=== PATIENT | female | born 1960 | race Two or more races ===

== ENCOUNTER 2023-06-28 14:17 | Emergency (ER) | payer MEDICARE, MEDICAID, SELFPAY ==
[2023-06-28 14:26] VITALS: BP 136/84; PULSE 65; TEMP 36.9; O2SAT 96; BMI 29.3
[2023-06-28 14:36] LABS: Glucometer 258 mg/dL (74-106)
--- NOTE | 2023-06-28 14:41 | ED.EAR1 ---
HPI - Ear Problem General Chief complaint: Ear Stated complaint: LT SIDE EAR INFECTION Time Seen by Provider: 06/28/23 14:41 Source: patient Mode of arrival: walk-in Limitations: no limitations History of Present Illness HPI Narrative: This patient is here complaining of pain near her left ear. She has not had any barotrauma. She has not had recent flights. She has not been swimming or scuba diving. She has no blood or drainage from her ear. She has not had any use of an antibiotic. She went and saw her dentist earlier this week who did x-rays and examine her and said it was not a tooth ache. She does not have any loss of voice or any upper respiratory type symptoms. Otherwise review of systems is negative. Related Data Home Medications ?Medication ?Instructions ?Recorded ?Confirmed cyproheptadine 4 mg tablet 4 mg PO Q12H 06/28/23 06/28/23 eszopiclone 3 mg tablet 3 mg PO BEDTIME 06/28/23 06/28/23 frovatriptan 2.5 mg tablet 2.5 mg PO Q2H PRN migraine headache 06/28/23 06/28/23 insulin glargine 100 unit/mL (3 20 unit subcut BEDTIME 06/28/23 06/28/23 mL) subcutaneous pen (Lantus Solostar U-100 Insulin) nadolol 40 mg tablet 40 mg PO DAILY 06/28/23 06/28/23 nortriptyline 50 mg capsule 50 mg PO BEDTIME 06/28/23 06/28/23 pramipexole 0.25 mg tablet 0.25 mg PO BEDTIME 06/28/23 06/28/23 Allergies Allergy/AdvReac Type Severity Reaction Status Date / Time amoxicillin [From Augmentin] Allergy Mild Vomiting Verified 06/28/23 14:36 clavulanic acid Allergy Mild Vomiting Verified 06/28/23 14:36 [From Augmentin] bacitracin AdvReac Mild blisters Verified 06/28/23 14:36 [From Neosporin ([id number])] diphenhydramine AdvReac Mild Restlessnes Verified 06/28/23 14:36 [From Benadryl] s doxycycline AdvReac Mild Hives Verified 06/28/23 14:36 neomycin AdvReac Mild blisters Verified 06/28/23 14:36 [From Neosporin ([id number])] polymyxin B AdvReac Mild blisters Verified 06/28/23 14:36 [From Neosporin ([id number])] topiramate [From Topamax] AdvReac Mild Swelling Verified 06/28/23 14:36 of Lip/Tongue/Throat Exam Narrative Exam Narrative: Patient is awake alert oriented pleasant appears in no distress. Examining her left TM is completely normal with normal anatomical landmarks. There is no retraction dullness or erythema. The external canal is not swollen. She has no pain with pulling on the pinna or pushing on the tragus. Her dentition is in good repair noted that her teeth are tender when I percussed them. There is no swelling of the mucous membranes of the mouth the gingival area and the oral cavity appear completely normal. When we palpate her left TMJ is exquisitely tender when she opens and closes and is exquisitely tender. There is no submandibular adenitis or adenopathy. Constitutional Vital Signs, click to edit/add: Last Vital Signs Temp 98.4 F 06/28/23 14:26 Pulse 65 06/28/23 14:26 Resp 16 06/28/23 14:26 BP 136/84 06/28/23 14:26 Pulse Ox 96 06/28/23 14:26 O2 Del Method Room Air 06/28/23 14:26 Course Vital Signs Vital signs: Vital Signs Temperature 98.4 F 06/28/23 14:26 Pulse Rate 65 06/28/23 14:26 Respiratory Rate 16 06/28/23 14:26 Blood Pressure 136/84 06/28/23 14:26 Pulse Oximetry 96 06/28/23 14:26 Oxygen Delivery Method Room Air 06/28/23 14:26 Temperature 98.4 F 06/28/23 14:26 Pulse Rate 65 06/28/23 14:26 Respiratory Rate 16 06/28/23 14:26 Blood Pressure 136/84 06/28/23 14:26 Pulse Oximetry 96 06/28/23 14:26 Oxygen Delivery Method Room Air 06/28/23 14:26 Medical Decision Making MDM Narrative Medical decision making narrative: Patient has TMJ syndrome. 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 Anaprox for 5 days. Follow-up with dentist specializing in TMJ problems if possible Referrals: Physician,Non-Staff, MD [Primary Care Provider] - 1 week
[2023-06-28 14:48] VITALS: BP 148/88; PULSE 65; O2SAT 98
== END 2023-06-28 14:50 | disposition home or self-care (01) ==
PROVIDERS: Emergency Provider Emergency Medicine Emergency Medical Services
DX: M26.609 Unspecified temporomandibular joint disorder, unspecified side (principal); Z79.899 Other long term (current) drug therapy; Z79.4 Long term (current) use of insulin
CPT/HCPCS: 36415; 99283